=== PATIENT | female | born 1950 | race Caucasian/White ===

== ENCOUNTER 2020-12-24 16:39 | Emergency (ER) | payer MEDICARE ==
[~2020-12-24 16:39] MED LIST: AMLODIPINE BESYL5 MG PO; BIOTIN 800 MCG1 EACH PO; CYCLOBENZAPRINE5 MG PO; FIORICET PO; HAIR, SKIN & N1 EACH PO; LORTAB 5-325 M1 EACH PO; MAGNESIUM500 MG PO; MIRALAX17 GM PO; NAPROXEN 250 M250 MG PO; VITAMIN B-121000 MCG PO; VITAMIN D3 COM1 EACH PO; [UNRECOGNIZED DRUG - OTHER] PO
[2020-12-24 17:51] LABS: HEMOGLOBIN 11.8 gm/dl (12.3-15.3); RED BLOOD COUNT 3.91 M/UL (4.00-5.10); WHITE BLOOD COUNT 5.7 K/UL (4.5-11.0)
[2020-12-24 18:05] LABS: BUN/CREATININE RATIO 30 (0-10)
[2020-12-24] MEDS ORDERED: PYRIDIUM200 MG PO (18:52)
[2020-12-24] MEDS ORDERED: ZOFRAN4 MG PO (18:52)
[2020-12-24] MEDS ORDERED: OMNICEF 300 MG300 MG PO (18:52)
== END 2020-12-24 19:12 | disposition home or self-care (01) ==
LOC: ER1 16:39
PROVIDERS: Physician Assistant Medical
DX: N30.00 Acute cystitis without hematuria (principal); I10 Essential (primary) hypertension; Z90.710 Acquired absence of both cervix and uterus; Z79.899 Other long term (current) drug therapy
CPT/HCPCS: 70450; 71045; 80053; 81001; 82550; 82553; 83605; 83874; 84484; 85025; 87077; 87086; 87186; 93005; 99284

== ENCOUNTER → 2021-02-06 | Outpatient (CLI) | payer MEDICARE ==
[~2021-02-06] MED LIST changes: +OMNICEF 300 MG300 MG PO; +PYRIDIUM200 MG PO; +ZOFRAN4 MG PO
== END ==
LOC: MAMO 10:20
DX: Z12.31 Encounter for screening mammogram for malignant neoplasm of breast (principal)
CPT/HCPCS: 77063; 77067

== ENCOUNTER → 2021-03-02 | Outpatient (CLI) | payer MEDICARE | LOC: OPS 13:14 | DX: R10.32 Left lower quadrant pain (principal); I45.10 Unspecified right bundle-branch block; R94.31 Abnormal electrocardiogram [ECG] [EKG] | CPT/HCPCS: 93005 ==

== ENCOUNTER → 2022-01-25 | Outpatient (CLI) | payer MEDICARE | LOC: EXRD 14:57 | DX: N39.0 Urinary tract infection, site not specified (principal); R33.9 Retention of urine, unspecified | CPT/HCPCS: 76775 ==

== ENCOUNTER → 2022-03-18 | Outpatient (CLI) | payer MEDICARE | LOC: MAMO 14:30 | DX: Z12.31 Encounter for screening mammogram for malignant neoplasm of breast (principal) | CPT/HCPCS: 77063; 77067 ==

== ENCOUNTER 2022-04-05 10:27 | Emergency (ER) | payer MEDICARE ==
[2022-04-05 13:08] LABS: HEMOGLOBIN 12.5 gm/dl (12.3-15.3); RED BLOOD COUNT 4.11 M/UL (4.00-5.10)
[2022-04-05] MEDS ORDERED: PERCOCET 5/325 T1 EA PO (15:49)
[2022-04-05] MEDS ORDERED: CEFDINIR300 MG PO (16:19)
[2022-04-05] MEDS ORDERED: PROTONIX40 MG PO (16:19)
== END 2022-04-05 16:32 | disposition home or self-care (01) ==
LOC: ER1 10:27
PROVIDERS: Physician Assistant
DX: S92.352A Displaced fracture of fifth metatarsal bone, left foot, initial encounter for closed fracture (principal); S32.039A Unspecified fracture of third lumbar vertebra, initial encounter for closed fracture; S70.02XA Contusion of left hip, initial encounter; M51.16 Intervertebral disc disorders with radiculopathy, lumbar region; N39.0 Urinary tract infection, site not specified; I10 Essential (primary) hypertension; Z90.710 Acquired absence of both cervix and uterus; Z79.899 Other long term (current) drug therapy; W01.0XXA Fall on same level from slipping, tripping and stumbling without subsequent striking against object, initial encounter
CPT/HCPCS: 72128; 72131; 73502; 73610; 73630; 80048; 81001; 82550; 85025; 99284

== ENCOUNTER → 2022-04-21 | Outpatient (CLI) | payer MEDICARE ==
[~2022-04-21] MED LIST changes: +CEFDINIR300 MG PO; +PERCOCET 5/325 T1 EA PO; +PROTONIX40 MG PO
== END ==
LOC: KOH-I 13:53
DX: M51.37 Other intervertebral disc degeneration, lumbosacral region (principal); M48.061 Spinal stenosis, lumbar region without neurogenic claudication
CPT/HCPCS: 72148